=== PATIENT | female | born 1955 | race Caucasian/White ===

== ENCOUNTER 2020-06-29 21:36 | Observation (INO) | payer OTHER ==
[2020-06-29] MEDS ORDERED: NA CHLORIDE 0.9% 1,000 ML ONE (22:26)
[2020-06-29 22:34] LABS: Absolute Lymphocytes (CBC) 1.8 K/uL (0.7-4.9); Basophils % 1.4 % (0-1.3); Hematocrit 32.4 % (36.0-45.0); Lymphocytes % 29.8 % (15.3-44.8); MPV 8.7 fL (7.6-11.3); Protime INR 1.06; RBC Red Blood Cell Count 4.01 M/uL (3.86-4.86)
[2020-06-29 22:42] LABS: ALT/SGPT 21 U/L (12-78); AST/SGOT 22 U/L (15-37); Albumin 3.7 g/dL (3.4-5.0); Alkaline Phosphatase 83 U/L (45-117); BUN Blood Urea Nitrogen 22 mg/dL (7-18); Bicarbonate 24 mmol/L (21-32); Bilirubin Direct < 0.1 mg/dL (0-0.2); Bilirubin Total 0.3 mg/dL (0.2-1.0); Glucose Level 103 mg/dL (74-106); Magnesium 2.5 mg/dL (1.8-2.4); NT PRO-BNP 152 pg/mL (<125); Potassium 3.8 mmol/L (3.5-5.1); Protein, Total 7.5 g/dL (6.4-8.2); Sodium Level 143 mmol/L (136-145); Troponin (Emerg Dept Use Only) < 0.02 ng/mL (0.0-0.045)
--- NOTE | 2020-06-29 23:13 | ER ---
Nurse's Notes [facility] Name: Erin Ann Age: 64 yrs Sex: Female : 1955 Arrival Date: 06/29/2020 Time: 21:39 Bed 25 Private MD: Diagnosis: Radiculopathy, cervical region;Essential (primary) hypertension;Chest pain, unspecified;Anemia, unspecified Presentation: 06/29 21:44 Chief complaint: Patient states: Left shoulder pain that radiated into L neck since ll1 2000 tonight. 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 No fever, cough. Coronavirus screen: Client denies travel out of the [place] in the last 14 days. fatigue, Client presents with at least one sign or symptom that may indicate coronavirus-19. Standard/surgical mask placed on the client. Ebola Screen: Patient denies travel to an Ebola-affected area in the 21 days before illness onset. Acute neurological deficit: none identified. Initial Sepsis Screen: Does the patient meet any 2 criteria? No. Patient's initial sepsis screen is negative. Does the patient have a suspected source of infection? No. Patient's initial sepsis screen is negative. Risk Assessment: Do you want to hurt yourself or someone else? Patient reports no desire to harm self or others. Onset of symptoms was June 29, 2020. 21:44 Method Of Arrival: Ambulatory ll1 21:44 Acuity: DINA 3 ll1 Historical: - Allergies: 21:47 NSAIDS; ll1 - PMHx: 21:47 HTN-resolved; ll1 - PSHx: 21:47 Gastric Bypass; ; ll1 - Immunization history:: Flu vaccine is up to date. - Social history:: Smoking status: Patient denies any tobacco usage or history of. - Family history:: not pertinent. Screenin:25 Abuse screen: Denies threats or abuse. Denies injuries from another. Nutritional mg2 screening: No deficits noted. Tuberculosis screening: No symptoms or risk factors identified. Fall Risk IV access (20 points). Assessment: 22:24 General: Appears in no apparent distress. comfortable, Behavior is calm, cooperative. mg2 Pain: Complains of pain in left shoulder Pain currently is 2 out of 10 on a pain scale. Quality of pain is described as aching, Pain began gradually, 3 hours ago. Is continuous. Neuro: Level of Consciousness is awake, alert, obeys commands, Oriented to person, place, time, situation. Cardiovascular: Capillary refill < 3 seconds Patient's skin is warm and dry. Respiratory: Airway is patent Respiratory effort is even, unlabored, Respiratory pattern is regular, symmetrical. GI: No deficits noted. : No signs and/or symptoms were reported regarding the genitourinary system. EENT: No signs and/or symptoms were reported regarding the EENT system. Derm: Skin is intact, is healthy with good turgor, Skin is pink, warm \T\ dry. Musculoskeletal: Circulation, motion, and sensation intact. Capillary refill < 3 seconds. 23:40 Reassessment: Patient appears in no apparent distress at this time. Patient and/or mg2 family updated on plan of care and expected duration. Pain level reassessed. Patient is alert, oriented x 3, equal unlabored respirations, skin warm/dry/pink. 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 Vital Signs: 21:44 BP 148 / 85; Pulse 62; Resp 17; Temp 98.0; Pulse Ox 98% ; Weight 83.91 kg; Height 5 ft. ll1 5 in. (165.10 cm); Pain 7/10; 22:31 BP 136 / 80; Pulse 53; Resp 18; Pulse Ox 98% on R/A; mg2 23:40 BP 141 / 71; Pulse 53; Resp 18; Pulse Ox 98% on R/A; mg2 21:44 Body Mass Index 30.79 (83.91 kg, 165.10 cm) ll1 ED Course: 21:39 Patient arrived in ED. cl3 21:46 Triage completed. ll1 21:46 Arm band placed on Patient placed in an exam room, on a stretcher. ll1 21:54 Cristian Hopkins, HERBERTH is Primary Nurse. mg2 22:02 Frank Bolton MD is Attending Physician. carolyn 22:10 Inserted saline lock: 20 gauge in right antecubital area, using aseptic technique. mg2 Blood collected. 22:19 XRAY Chest (1 view) In Process Unspecified. EDMS 22:25 CT Head C Spine In Process Unspecified. EDMS 22:25 Patient has correct armband on for positive identification. mg2 22:25 No provider procedures requiring assistance completed. mg2 23:12 Manny Botello MD is Hospitalizing Provider. carolyn 23:58 COVID swab sent to lab. Patient admitted, IV remains in place. mg2 Administered Medications: 22:24 Drug: NS 0.9% 500 ml Route: IV; Rate: bolus; Site: right antecubital; mg2 06/30 02:26 Follow up: Response: No adverse reaction; IV Status: Completed infusion; IV Intake: mg2 500ml 06/29 23:09 Drug: NS 0.9% 1000 ml Route: IV; Rate: 125 ml/hr; Site: right antecubital; mg2 23:39 Drug: Lovenox 1 mg/kg Route: Sub-Q; Site: right upper abdomen; mg2 06/30 02:25 Follow up: Response: No adverse reaction mg2 06/29 23:39 Drug: Aspirin 81 mg Route: PO; mg2 06/30 02:25 Follow up: Response: No adverse reaction mg2 06/29 23:40 Drug: Pepcid 20 mg Route: IVP; Site: right antecubital; mg2 06/30 02:25 Follow up: Response: No adverse reaction mg2 Intake: 02:26 IV: 500ml; Total: 500ml. mg2 Outcome: 06/29 23:12 Decision to Hospitalize by Provider. carolyn 06/30 00:25 Admitted to ER Hold. Please see [facility] for further documentation. mg2 Condition: stable Instructed on the need for admit, Demonstrated understanding of instructions. 13:23 Patient left the ED. dm5 Signatures: Dispatcher [employer] Merlyn Campbell RN RN dm5 Frank Bolton MD MD cha Gardose, Michele, RN RN mg2 Jack Ramos Lynsay, RN RN ll1
--- NOTE | 2020-06-29 23:13 | EDPHYS ---
Physician Documentation [facility] Name: Erin Ann Age: 64 yrs Sex: Female : 1955 Arrival Date: 06/29/2020 Time: 21:39 Bed 25 Private MD: ED Physician Frank Bolton HPI: 06/29 22:24 This 64 yrs old Female presents to ER via Ambulatory with complaints of carolyn Numbness Of Arm, Neck Problem. 22:24 The patient or guardian complains of decreased range of motion, pain, that is acute. carolyn The complaints affect the anterior aspect of left shoulder and posterior aspect of left shoulder. Context: The problem was sustained at an unknown location. Onset: The symptoms/episode began/occurred just prior to arrival. Treatment prior to arrival includes: no previous treatment. Modifying factors: The symptoms are alleviated by nothing. the symptoms are aggravated by nothing. Associated signs and symptoms: The patient has no apparent associated signs or symptoms. Severity of symptoms: At their worst the symptoms were mild, in the emergency department the symptoms are unchanged. The patient has not experienced similar symptoms in the past. Historical: - Allergies: 21:47 NSAIDS; ll1 - PMHx: 21:47 HTN-resolved; ll1 - PSHx: 21:47 Gastric Bypass; ; ll1 - Immunization history:: Flu vaccine is up to date. - Social history:: Smoking status: Patient denies any tobacco usage or history of. - Family history:: not pertinent. ROS: 22:24 Constitutional: Negative for fever, chills, and weight loss, Eyes: Negative for injury, carolyn pain, redness, and discharge, ENT: Negative for injury, pain, and discharge, Cardiovascular: Negative for chest pain, palpitations, and edema, Respiratory: Negative for shortness of breath, cough, wheezing, and pleuritic chest pain, Abdomen/GI: Negative for abdominal pain, nausea, vomiting, diarrhea, and constipation, Back: Negative for injury and pain, : Negative for injury, bleeding, discharge, and swelling, Skin: Negative for injury, rash, and discoloration, Neuro: Negative for headache, weakness, numbness, tingling, and seizure, Psych: Negative for depression, anxiety, suicide ideation, homicidal ideation, and hallucinations, Allergy/Immunology: Negative for hives, rash, and allergies, Endocrine: Negative for neck swelling, polydipsia, polyuria, polyphagia, and marked weight changes, Hematologic/Lymphatic: Negative for swollen nodes, abnormal bleeding, and unusual bruising. 22:24 Neck: Positive for pain with movement, pain at rest. 22:24 MS/extremity: Positive for deformity, pain, tenderness, of the anterior aspect of left shoulder, left bicep, posterior aspect of left shoulder and left tricep. Exam: 22:24 Constitutional: This is a well developed, well nourished patient who is awake, alert, carolyn and in no acute distress. Head/Face: Normocephalic, atraumatic. Eyes: Pupils equal round and reactive to light, extra-ocular motions intact. Lids and lashes normal. Conjunctiva and sclera are non-icteric and not injected. Cornea within normal limits. Periorbital areas with no swelling, redness, or edema. ENT: Nares patent. No nasal discharge, no septal abnormalities noted. Tympanic membranes are normal and external auditory canals are clear. Oropharynx with no redness, swelling, or masses, exudates, or evidence of obstruction, uvula midline. Mucous membranes moist. Neck: Trachea midline, no thyromegaly or masses palpated, and no cervical lymphadenopathy. Supple, full range of motion without nuchal rigidity, or vertebral point tenderness. No Meningismus. Chest/axilla: Normal chest wall appearance and motion. Nontender with no deformity. No lesions are appreciated. Cardiovascular: Regular rate and rhythm with a normal S1 and S2. No gallops, murmurs, or rubs. Normal PMI, no JVD. No pulse deficits. Respiratory: Lungs have equal breath sounds bilaterally, clear to auscultation and percussion. No rales, rhonchi or wheezes noted. No increased work of breathing, no retractions or nasal flaring. Abdomen/GI: Soft, non-tender, with normal bowel sounds. No distension or tympany. No guarding or rebound. No evidence of tenderness throughout. Back: No spinal tenderness. No costovertebral tenderness. Full range of motion. Female : Normal external genitalia. Skin: Warm, dry with normal turgor. Normal color with no rashes, no lesions, and no evidence of cellulitis. MS/ Extremity: Pulses equal, no cyanosis. Neurovascular intact. Full, normal range of motion. Neuro: Awake and alert, GCS 15, oriented to person, place, time, and situation. Cranial nerves II-XII grossly intact. Motor strength 5/5 in all extremities. Sensory grossly intact. Cerebellar exam normal. Normal gait. Psych: Awake, alert, with orientation to person, place and time. Behavior, mood, and affect are within normal limits. 22:27 ECG was reviewed by the Attending Physician. [facility] Vital Signs: 21:44 BP 148 / 85; Pulse 62; Resp 17; Temp 98.0; Pulse Ox 98% ; Weight 83.91 kg; Height 5 ft. ll1 5 in. (165.10 cm); Pain 7/10; 22:31 BP 136 / 80; Pulse 53; Resp 18; Pulse Ox 98% on R/A; mg2 23:40 BP 141 / 71; Pulse 53; Resp 18; Pulse Ox 98% on R/A; mg2 21:44 Body Mass Index 30.79 (83.91 kg, 165.10 cm) ll1 MDM: 22:02 Patient medically screened. carolyn 22:29 Differential diagnosis: tendonitis. Data reviewed: vital signs, nurses notes, lab test [facility] result(s), EKG, radiologic studies, CT scan, plain films. Data interpreted: secured entrance monitor: rate is 62 beats/min, rhythm is regular, Pulse oximetry: on room air is 98 %. Test interpretation: by ED physician or midlevel provider: ECG, plain radiologic studies. Counseling: I had a detailed discussion with the patient and/or guardian regarding: the historical points, exam findings, and any diagnostic results supporting the discharge/admit diagnosis, lab results, radiology results, the need for outpatient follow up, for definitive care, a phys ther. 06/29 22:04 Order name: Basic Metabolic Panel; Complete Time: 23:01 [facility] 06/29 22:04 Order name: CBC with Diff; Complete Time: 23: [facility] 06/29 22:04 Order name: LFT's; Complete Time: 23: [facility] 06/29 22:04 Order name: Magnesium; Complete Time: 23: [facility] 06/29 22:04 Order name: NT PRO-BNP; Complete Time: 23: [facility] 06/29 22:04 Order name: PT-INR; Complete Time: 23: [facility] 06/29 22:04 Order name: Troponin (emerg Dept Use Only); Complete Time: 23:01 [facility] 06/29 23:39 Order name: COVID-19 mg2 06/30 01:02 Order name: SARS-COV-2 RT PCR [facility] 06/30 05:04 Order name: CBC with Automated Diff [facility] 06/30 05:51 Order name: Basic Metabolic Panel [facility] 06/30 05:51 Order name: Troponin I [facility] 06/30 05:51 Order name: Lipid Profile [facility] 06/30 05:51 Order name: T4 Free [facility] 06/29 22:04 Order name: XRAY Chest (1 view) [facility] 06/29 22:04 Order name: EKG; Complete Time: 22:05 [facility] 06/29 22:04 Order name: Cardiac monitoring; Complete Time: 22:07 [facility] 06/29 22:04 Order name: EKG - Nurse/Tech; Complete Time: 22:07 [facility] 06/29 22:04 Order name: IV Saline Lock; Complete Time: 22:07 [facility] 06/29 22:04 Order name: Labs collected and sent; Complete Time: 22:07 [facility] 06/29 22:04 Order name: O2 Per Protocol; Complete Time: 22:07 [facility] 06/29 22:04 Order name: CT Head C Spine [facility] 06/30 05:51 Order name: Magnesium [facility] 06/30 05:51 Order name: Thyroid Stimulating Hormone [facility] 06/30 12:54 Order name: Troponin I [facility] 06/29 22:04 Order name: O2 Sat Monitoring; Complete Time: 22:07 [facility] EC:27 Rate is 58 beats/min. QRS [place] is Normal. MD interval is normal. QRS interval is carolyn normal. QT interval is normal. No Q waves. T waves are Normal. No ST changes noted. Clinical impression: Sinus bradycardia and No evidence of ischemia. Interpreted by me. Reviewed by me. Administered Medications: 22:24 Drug: NS 0.9% 500 ml Route: IV; Rate: bolus; Site: right antecubital; mg2 06/30 02:26 Follow up: Response: No adverse reaction; IV Status: Completed infusion; IV Intake: mg2 500ml 06/29 23:09 Drug: NS 0.9% 1000 ml Route: IV; Rate: 125 ml/hr; Site: right antecubital; mg2 23:39 Drug: Lovenox 1 mg/kg Route: Sub-Q; Site: right upper abdomen; mg2 06/30 02:25 Follow up: Response: No adverse reaction mg2 06/29 23:39 Drug: Aspirin 81 mg Route: PO; mg2 06/30 02:25 Follow up: Response: No adverse reaction mg2 06/29 23:40 Drug: Pepcid 20 mg Route: IVP; Site: right antecubital; mg2 06/30 02:25 Follow up: Response: No adverse reaction mg2 Disposition: 06/29/20 23:12 Hospitalization ordered by Manny Botello for Observation. Preliminary diagnosis are Radiculopathy, cervical region, Essential (primary) hypertension, Chest pain, unspecified, Anemia, unspecified. - Bed requested for [facility] ER HOLD. - Status is Observation. dm5 - Condition is Stable. - Problem is new. - Symptoms have improved. Signatures: Dispatcher [employer] EDMS Merlyn Santiago RN RN dm5 Frank Bolton MD MD cha Lasagna, Tonya, RN RN tl1 Cristian Hopkins RN RN mg2 Leroy Ramos RN RN ll1 Corrections: (The following items were deleted from the chart) 06/29 23:15 23:12 Hospitalization Ordered by Manny Botello MD for Observation. Preliminary carolyn diagnosis is Radiculopathy, cervical region; Essential (primary) hypertension; Chest pain, unspecified. Bed requested for Telemetry/MedSurg (observation). Status is Observation. Condition is Stable. Problem is new. Symptoms have improved. [facility] 23:41 23:15 06/29/2020 23:12 Hospitalization Ordered by Manny Botello MD for Observation. tl1 Preliminary diagnosis is Radiculopathy, cervical region; Essential (primary) hypertension; Chest pain, unspecified; Anemia, unspecified. Bed requested for Telemetry/MedSurg (observation). Status is Observation. Condition is Stable. Problem is new. Symptoms have improved. [facility] 06/30 13:23 06/29 23:41 06/29/2020 23:12 Hospitalization Ordered by Manny Botello MD for dm5 Observation. Preliminary diagnosis is Radiculopathy, cervical region; Essential (primary) hypertension; Chest pain, unspecified; Anemia, unspecified. Bed requested for [facility] ER HOLD. Status is Observation. Condition is Stable. Problem is new. Symptoms have improved. tl1
[2020-06-29] MEDS ORDERED: FAMOTIDINE 20 MG/2 ML VIAL IV ONE (23:33)
[2020-06-29] MEDS ORDERED: ASPIRIN EC 81 MG TAB PO ONE (23:33)
[2020-06-29] MEDS ORDERED: ENOXAPARIN 80 MG/0.8 ML SQ ONE (23:33)
[2020-06-29] MEDS ORDERED: ETOMIDATE 20 MG/10 ML VIAL IV ONE (23:43)
[2020-06-29] MEDS ORDERED: SUCCINYLCHOLINE 20 MG/ML (10 ML) IV ONE (23:43)
[2020-06-29] MEDS ORDERED: ROCURONIUM 50 MG/5 ML VIAL IV ONE (23:43)
--- NOTE | 2020-06-29 23:45 | P.HP ---
Certification for Inpatient Patient admitted to: Observation With expected LOS: <2 Midnights Patient will require the following post-hospital care: None Practitioner: I am a practitioner with admitting privileges, knowledge of patient current condition, hospital course, and medical plan of care. Services: Services provided to patient in accordance with Admission requirements found in Title 42 Section 412.3 of the Code of Federal Regulations Patient History Date of Service: 06/29/20 Primary Care Provider: Dr. Bettencourt Reason for admission: Chest pain History of Present Illness: 64-year-old female with history of hypothyroidism presents emergency department for neck/shoulder pain. Patient reports that around 8:00 p.m. today she is sitting in a recliner and noticed that she had a sharp pain right around the AC joint to the left shoulder, pain radiating down the front of her chest and abdomen to left jaw and down left arm. Pain lasted for a few min and went away, was not exacerbated or relieved by anything. Patient denies similar symptoms in the past. Patient has not had cardiac workup ever, mother and fa ther had history of coronary artery disease. Initial troponin negative, EKG and chest x-ray without acute findings. ED provider wishes to admit patient for further evaluation and management. Allergies No Known Allergies Allergy (Unverified 05/08/12 20:45) - Past Medical/Surgical History -: Hypothyroidism -: Gastric bypass Psychosocial/ Personal History: Patient is retired, lives with her - Family History Father -: Heart disease Mother -: Heart disease - Social History Smoking Status: Never smoker Alcohol use: No CD- Drugs: No Caffeine use: Yes Place of Residence: Home Review of Systems 10-point ROS is otherwise unremarkable Musculoskeletal: Neck Pain, Shoulder Pain, Arm Pain Physical Examination - Physical Exam General: Alert, In no apparent distress HEENT: Atraumatic, PERRLA, Mucous membr. moist/pink Neck: Supple, 2+ carotid pulse no bruit, No LAD Respiratory: Clear to auscultation bilaterally, Normal air movement Cardiovascular: Regular rate/rhythm, Normal S1 S2 Gastrointestinal: Normal bowel sounds, No tenderness Musculoskeletal: No tenderness Integumentary: No rashes Neurological: Normal speech, Normal strength at 5/5 x4 extr, Normal tone, Normal affect - Studies Laboratory Data (last 24 hrs) 06/29/20 22:05: PT 12.5, INR 1.06 06/29/20 22:05: WBC 6.0, Hgb 10.4 L, Hct 32.4 L, Plt Count 302 06/29/20 22:05: Sodium 143, Potassium 3.8, BUN 22 H, Creatinine 0.80, Glucose 103, Magnesium 2.5 H, Total Bilirubin 0.3, AST 22, ALT 21, Alkaline Phosphatase 83 Assessment and Plan - Plan Assessment Atypical chest pain rule out ACS Hypothyroidism Plan Atypical chest pain rule out ACS: Trend troponins, monitor on telemetry. Cardiology consult in place, continue with daily aspirin, statin. Lipid panel with morning labs. DVT prophylaxis with Lovenox. Hypothyroidism: Obtain and continue home medications thyroid panel with morning labs. Discharge Plan: Home Plan to discharge in: 24 Hours - Advance Directives Does patient have a Living Will: No Does patient have a Durable POA for Healthcare: No - Code Status/Comfort Care Code Status Assessed: Yes (Full code) Critical Care: No Time Spent Managing Pts Care (In Minutes): 55
[2020-06-30] MEDS ORDERED: ONDANSETRON 4 MG/2 ML VIAL IV PRN (00:29)
[2020-06-30] MEDS ORDERED: MORPHINE 2 MG/ML SYR IV PRN (00:29)
[2020-06-30 00:33] VITALS: BMI 30.7
[2020-06-30] MEDS ORDERED: NA CHLORIDE 0.9% 1,000 ML ONE (03:47)
[2020-06-30 05:02] LABS: Absolute Lymphocytes (CBC) 2.4 K/uL (0.7-4.9); Basophils % 1.4 % (0-1.3); Hematocrit 30.7 % (36.0-45.0); Lymphocytes % 45.7 % (15.3-44.8); MPV 8.8 fL (7.6-11.3); RBC Red Blood Cell Count 3.78 M/uL (3.86-4.86)
[2020-06-30 05:41] LABS: BUN Blood Urea Nitrogen 16 mg/dL (7-18); Bicarbonate 25 mmol/L (21-32); Glucose Level 82 mg/dL (74-106); HDL Cholesterol 63 mg/dL (40-60); LDL Cholesterol, Calculated 129 (<130); Magnesium 2.3 mg/dL (1.8-2.4); Potassium 3.7 mmol/L (3.5-5.1); Sodium Level 144 mmol/L (136-145); Troponin I < 0.02 ng/mL (0.0-0.045)
--- NOTE | 2020-06-30 07:55 | RAD REPORT ---
EXAM DESCRIPTION: Gabriel Single View06/29/2020 10:21 pm CLINICAL HISTORY: Cough COMPARISON: 2011 FINDINGS: The lungs appear clear of acute infiltrate. The heart is normal size IMPRESSION: No acute abnormalities displayed
[2020-06-30] MEDS ORDERED: ENOXAPARIN 40 MG/0.4 ML SQ SCH (09:00)
[2020-06-30] MEDS ORDERED: ASPIRIN EC 81 MG TAB PO SCH (09:00)
--- NOTE | 2020-06-30 09:20 | CON ---
Date of Consultation: 06/30/2020 Reason For Consultation: Atypical chest pain. History Of Present Illness: Ms. Ann is a 64-year-old woman with history of gastric bypass smiley edmundo. No previous cardiac history. Has a history of chronic anemia, for which she takes iron. Has a history of hypothyroidism. She came in with left shoulder pain that radiated to the left neck and the back of the head with some numbness, which lasted about a few hours without any nausea, vomiting, diaphoresis, PND, orthopnea, pedal edema, palpitation, or syncope. [place] has been ruled out. EKG is n ormal. Chest x-ray is normal. She has a hemoglobin of 9.6. Her TSH was 32. Past Medical History: As stated above. Allergies: NONSTEROIDAL ANTI-INFLAMMATORY AGENTS. Medications: None. Review of Systems: Negative. Social History: Negative. Family History: Negative. Physical Examination: Vital Signs: Stable, afebrile. HEENT: Negative. Neck: Supple with no bruit. Chest: Clear to auscultation and percussion. Cardiac: Revealed a regular rhythm and rate. No murmurs, gallops, or rubs. Abdomen: Benign. Extremities: Revealed no clubbing, cyanosis, or edema. Diagnostic Data: As stated earlier. Impression And Plan: 1.Atypical chest pain, most likely cervical spondylosis. 2.Hypothyroidism with elevated TSH. Her thyroid dose needs to be adjusted. 3.Status post gastric bypass surgery. 4.Allergy to nonsteroidal anti-inflammatory agents. 5.Mild anemia. Patient is on home iron, but she has not taken it for a while. 6.I think an echocardiogram is reasonable to rule out any wall motion abnormalities or pericardial e ffusion or cardiomyopathy, and if this is normal, she can go home and we will make arrangements for a n outpatient stress test for her. JOSHUA/MIRA Voice ID: [id number] Report ID: [id number]
[2020-06-30] MEDS ORDERED: ASPIRIN EC 81 MG TAB PO ONE (09:21)
[2020-06-30] MEDS ORDERED: ENOXAPARIN 40 MG/0.4 ML SQ ONE (09:23)
[2020-06-30 11:06] VITALS: O2SAT 96
--- NOTE | 2020-06-30 12:07 | RAD REPORT ---
EXAM DESCRIPTION: CT - Head C Spine Mpr Wo Con - 06/30/2020 6:55 am CLINICAL HISTORY: 64-year-old female with pain. COMPARISON: None. TECHNIQUE: CT brain without contrast. This exam was performed according to our departmental dose opt imization program which includes use of automated exposure control, adjustment of the mA and/or kV ac cording to patient size and/or use of iterative reconstruction technique. FINDINGS: Minimal foci of patchy hypoattenuation are present in a subcortical and periventricular de ep white matter distribution, nonspecific; however, most likely represent small vessel ischemic disea se, age indeterminate. The ventricles, sulci, and cisterns are symmetric and unremarkable. The anguiano-white matter different iation is preserved. Partially empty sella otherwise the midline structures are within normal limit s. There is no mass effect, midline shift, intra- or extra-axial fluid collection/acute hemorrhage. The osseous structures are unremarkable. The paranasal sinuses reveal polyp or retention cyst with in the LEFT maxillary sinus otherwise the remaining paranasal sinuses and mastoid air cells are clear . IMPRESSION: 1. No acute intracranial abnormalities. Nonspecific, minimal white matter change most likely small vessel ischemic disease, age indeterminate. 2. CT is insensitive for early evaluation of acute stroke. If there is clinical concern for acute ischemia, an MRI may be considered. TECHNIQUE: Cervical spine CT was performed without contrast. Multiplanar reformatted images were pro vided. This exam was performed according to our departmental dose optimization program which includes use of automated exposure control, adjustment of the mA and/or kV according to patient size and/or u se of iterative reconstruction technique. COMPARISON: None. FINDINGS: There is normal alignment of the cervical spine without fracture or subluxation. The facet s are normal in alignment bilaterally. The posterior elements including the spinous processes are int act. Straightening of the cervical spine which may be secondary to positioning for the examination. Morphology and attenuation of the vertebral bodies and intervertebral disk spaces is compatible with multilevel degenerative change. Multilevel loss of intervertebral disk height. Multilevel posterior osseous spurring results in neuro foraminal narrowing throughout the cervical spine. Additionally, multilevel posterior osseous spurring and disk osteophyte complex results in multilevel effacement of the ventral thecal sac and moderate to severe central spinal canal narrowing at C3-4, C4-5, C5-6 and C6-7 vertebral levels. The pre-and paravertebral soft tissues are within normal limits. IMPRESSION: 1. Straightening of the cervical spine which may be secondary to positioning for the exa mination versus spasm. 2. No fracture or acute subluxation. 3. Moderate to severe degenerative changes of the cervical spine with multilevel moderate to severe c entral spinal canal narrowing. If the patient's symptoms persist, follow-up evaluation with MRI may b e considered. Electronically signed by: Daja Tompkins MD 06/29/2020 11:04 PM TEAM LEAD Due to temporary technical issues with the PACS/Fluency reporting system, reports are being signed by the in house radiologist without review as a courtesy to ensure prompt reporting. The interpreting r adiologist is fully responsible for the content of the report.
[2020-06-30 12:54] VITALS: BP 130/69; TEMP 97.9
[2020-06-30] MEDS ORDERED: ETOMIDATE 20 MG/10 ML VIAL IV ONE (13:25)
[2020-06-30] MEDS ORDERED: SUCCINYLCHOLINE 20 MG/ML (10 ML) IV ONE (13:25)
[2020-06-30] MEDS ORDERED: ATORVASTATIN 40 MG TAB PO SCH (21:00)
--- NOTE | 2020-07-01 10:59 | ECHO ---
HEIGHT: 5 ft 5 in WEIGHT: 184 lb 15.838 oz DATE OF STUDY: 06/30/[address]: Jos Michelle MD 2-DIMENSIONAL: YES M.MODE: YES DOPPLER: YES COLOR FLOW: YES TDS: NO PORTABLE: NO DEFINITY: NO BUBBLE STUDY: NO DIAGNOSIS: CHEST PAIN CARDIAC HISTORY: CATHERIZATION: NO SURGERY: NO PROSTHETIC VALVE: NO PACEMAKER: NO MEASUREMENTS (cm) DIASTOLIC (NORMALS) SYSTOLIC (NORMALS) IVSd 1.1 (0.6-1.2) LA Diam 3.5 (1.9-4.0) LVEF 59% LVIDd 4.9 (3.5-5.7) LVIDs 3.3 (2.0-3.5) %FS 31% LVPWd 1.1 (0.6-1.2) Ao Diam 2.7 (2.0-3.7) 2 DIMENSIONAL ASSESSMENT: RIGHT ATRIUM: NORMAL LEFT ATRIUM: NORMAL RIGHT VENTRICLE: NORMAL LEFT VENTRICLE: NORMAL TRICUSPID VALVE: NORMAL MITRAL VALVE: NORMAL PULMONIC VALVE: NORMAL AORTIC VALVE: NORMAL PERICARDIAL EFFUSION: NONE AORTIC ROOT: NORMAL LEFT VENTRICULAR WALL MOTION: NORMAL DOPPLER/COLOR FLOW: MILD TRICUSPID REGURGITATION. COMMENTS: MILD TRICUSPID REGURGITATION. NO EFFUSION. NORMAL LEFT VENTRICULAR SIZE AND FUNCTION. NO WALL MOTION ABNORMALITY. TECHNOLOGIST: Andria HARVEY
--- NOTE | 2020-07-02 16:16 | EKG ---
Test Date: 2020-06-29 Test Time: 21:59:57 [employer]: MEASUREMENT RESULTS: Intervals: Rate: 58 OR: 154 QRSD: 90 QT: 442 QTc: 433 [place]: P: 58 OR: 154 QRS: 88 T: 62 INTERPRETIVE STATEMENTS: Sinus bradycardia Otherwise normal ECG Compared to ECG 05/09/2012 00:06:49 Sinus rhythm no longer present Electronically Signed On 07-02-20 16:10:10 [employer] by Jos Michelle
--- NOTE | 2020-07-06 02:06 | P.DS ---
Discharge Date: 06/30/20 Primary Care Provider: Dr. Bettencourt Disposition: ROUTINE DISCHARGE Discharge Condition: GOOD Reason for Admission: Chest pain Consultations: Emergency Room Physician Brief History of Present Illness: Patient is a 64-year-old female with history of hypothyroidism presents emergency department for neck/shoulder pain. Patient reports that around 8:00 p.m. today she is sitting in a recliner and noticed that she had a sharp pain right around the AC joint to the left shoulder, pain radiating down the front of her chest and abdomen to left jaw and down left arm. Pain lasted for a few min and went away, was not exacerbated or relieved by anything. Patient denies similar symptoms in the past. Patient has not had cardiac workup ever, mother and father had history of coronary artery disease. Initial troponin negative, EKG and chest x-ray without acute findings. ED provider wishes to admit patient for further evaluation and management. Hospital Course: Patient's echocardiogram was unremarkable. The patient is clinically doing well at this time. At this time, patient is stable for discharge home. Patient will need outpatient follow with cardiology and wanted 2 weeks. Return to the Emergency room if chest pain worsens. Vital Signs/Physical Exam: Temp Pulse Resp BP Pulse Ox 97.9 F 47 L 17 130/69 97 06/30/20 12:00 06/30/20 12:00 06/30/20 12:00 06/30/20 12:00 06/30/20 12:00 General: Alert, In no apparent distress, Oriented x3 Laboratory Data at Discharge: WBC 5.2 K/uL (4.3-10.9) 06/30/20 04:35 Hgb 9.6 g/dL (12.0-15.0) L 06/30/20 04:35 Hct 30.7 % (36.0-45.0) L 06/30/20 04:35 Plt Count 264 K/uL (152-406) 06/30/20 04:35 PT 12.5 SECONDS (9.5-12.5) 06/29/20 22:05 INR 1.06 06/29/20 22:05 Sodium 144 mmol/L (136-145) 06/30/20 04:35 Potassium 3.7 mmol/L (3.5-5.1) 06/30/20 04:35 BUN 16 mg/dL (7-18) 06/30/20 04:35 Creatinine 0.58 mg/dL (0.55-1.3) 06/30/20 04:35 Glucose 82 mg/dL (74-106) 06/30/20 04:35 Magnesium 2.3 mg/dL (1.8-2.4) 06/30/20 04:35 Total Bilirubin 0.3 mg/dL (0.2-1.0) 06/29/20 22:05 AST 22 U/L (15-37) 06/29/20 22:05 ALT 21 U/L (12-78) 06/29/20 22:05 Alkaline Phosphatase 83 U/L (45-117) 06/29/20 22:05 Troponin I < 0.02 ng/mL (0.0-0.045) 06/30/20 12:28 Triglycerides 59 mg/dL (<150) 06/30/20 04:35 Cholesterol 204 mg/dL (<200) H 06/30/20 04:35 HDL Cholesterol 63 mg/dL (40-60) H 06/30/20 04:35 Cholesterol/HDL Ratio 3.24 06/30/20 04:35 Patient Discharge Instructions: OK TO DC IV AND DC HOME. FOLLOW-UP WITH PRIMARY CARE PROVIDER IN 1-2 WEEKS. FOLLOW-UP WITH CARDIOLOGY IN 1-2 WEEKS. RETURN TO THE ER IF symptoms worsen. CALL or TEXT DR. JOHNSON AT [phone] IF ANY QUESTIONS REGARDING HOSPITAL STAY. PLEASE CALL THE FLOOR AT [phone] IF ANY MEDICATION OR NURSING QUESTIONS. Diet: AHA Activity: Fall precautions Followup: Juan Bettencourt MD [Primary Care Provider] - Time spent managing pt's care (in minutes): 30
== END 2020-06-30 13:26 | disposition home or self-care (01) ==
LOC: ER 21:36 → ERHOLD 23:42
PROVIDERS: ADMIT Hospitalist; ATTEND Hospitalist
DX: R07.9 Chest pain, unspecified (principal); M25.512 Pain in left shoulder; M79.602 Pain in left arm; E03.9 Hypothyroidism, unspecified; Z20.828 Contact with and (suspected) exposure to other viral communicable diseases; M54.2 Cervicalgia; Z98.84 Bariatric surgery status; D64.9 Anemia, unspecified
CPT/HCPCS: 96361; 93005; 93306; 85025 ×2; 80048 ×2; 36415; 83735 ×2; 85610; 80061; 80076; 84443; 84484 ×3; 84439; 83880; 70450; 72125; 71045; 96372; 96374; 99285; U0003; J0330 ×2; J1650; J7030 ×2